=== PATIENT | male | born 1995 | race Caucasian/White ===

== ENCOUNTER 2016-10-31 16:52 | Emergency (ER) | payer OTHER ==
[~2016-10-31] VITALS: Ht 180.3 cm; Wt 50.1 kg
[2016-10-31 17:05] VITALS: BP 112/75
[2016-10-31] MEDS ORDERED: CYCLOPENTOLATE 0.5% EACHEYE STA (18:04)
== END 2016-10-31 21:38 | disposition home or self-care (01) ==
LOC: ED 20:27
DX: H33.012 Retinal detachment with single break, left eye (principal); H54.62 Unqualified visual loss, left eye, normal vision right eye; H54.42 Blindness, left eye, normal vision right eye
CPT/HCPCS: 99282

== ENCOUNTER 2018-12-09 10:23 | Emergency (ER) | payer BC, OTHER ==
[~2018-12-09] VITALS: Ht 180.3 cm; Wt 50.9 kg
[2018-12-09 10:27] VITALS: BP 117/88
[2018-12-09] MEDS ORDERED: KETOROLAC 30 MG/1 ML ONE (10:51)
[2018-12-09] MEDS ORDERED: KETOROLAC 30 MG/1 ML IM ONE (11:00)
== END 2018-12-09 11:23 | disposition home or self-care (01) ==
LOC: ED 11:00
DX: S40.021A Contusion of right upper arm, initial encounter (principal); S20.212A Contusion of left front wall of thorax, initial encounter; V49.49XA Driver injured in collision with other motor vehicles in traffic accident, initial encounter; Y93.89 Activity, other specified; Y92.89 Other specified places as the place of occurrence of the external cause; Y99.8 Other external cause status
CPT/HCPCS: 71101; 96372; 99283; J1885

== ENCOUNTER 2018-12-14 10:17 | Emergency (ER) | payer BC, OTHER ==
[~2018-12-14] VITALS: Ht 180.3 cm; Wt 50.0 kg
[2018-12-14 10:20] VITALS: BP 120/81
[2018-12-14] MEDS ORDERED: DIAZEPAM 5 MG TABLET PO ONE (11:00)
[2018-12-14] MEDS ORDERED: KETOROLAC 30 MG/1 ML IM ONE (11:00)
[2018-12-14] MEDS ORDERED: KETOROLAC 30 MG/1 ML ONE (11:01)
[2018-12-14] MEDS ORDERED: DIAZEPAM 5 MG TABLET ONE (11:01)
== END 2018-12-14 11:58 | disposition home or self-care (01) ==
LOC: ED 11:40
DX: S39.012A Strain of muscle, fascia and tendon of lower back, initial encounter (principal); R07.81 Pleurodynia; V49.09XA Driver injured in collision with other motor vehicles in nontraffic accident, initial encounter; Y93.89 Activity, other specified; Y92.89 Other specified places as the place of occurrence of the external cause; Y99.8 Other external cause status
CPT/HCPCS: 72110; 96372; 99283; J1885

== ENCOUNTER 2019-01-24 16:22 | Emergency (ER) | payer BC, OTHER ==
[~2019-01-24] VITALS: Ht 180.3 cm; Wt 49.9 kg
[2019-01-24 16:25] VITALS: BP 115/75
== END 2019-01-24 17:15 | disposition home or self-care (01) ==
LOC: ED 17:09
DX: S39.012A Strain of muscle, fascia and tendon of lower back, initial encounter (principal); V49.49XA Driver injured in collision with other motor vehicles in traffic accident, initial encounter; Y93.89 Activity, other specified; Y92.89 Other specified places as the place of occurrence of the external cause; Y99.8 Other external cause status
CPT/HCPCS: 96372; 99283; J1885